=== PATIENT | female | born 1995 | race Caucasian/White ===

== ENCOUNTER 2019-12-05 09:14 | Outpatient (CLI) | payer OTHER | END 2019-12-05 09:18 | disposition home or self-care (01) | LOC: SONOGRAMA 09:14 | PROVIDERS: ATTEND Pathology Anatomic Pathology & Clinical Pathology | DX: E04.1 Nontoxic single thyroid nodule (principal) ==

== ENCOUNTER 2021-01-07 10:15 | Outpatient (CLI) | payer OTHER | END 2021-01-07 10:20 | disposition home or self-care (01) | LOC: SONOGRAMA 10:15 | PROVIDERS: ATTEND Pathology Anatomic Pathology & Clinical Pathology | DX: E06.5 Other chronic thyroiditis (principal); E04.1 Nontoxic single thyroid nodule; D34 Benign neoplasm of thyroid gland; E04.8 Other specified nontoxic goiter ==